=== PATIENT | male | born 1985 | race Caucasian/White ===

== ENCOUNTER 2018-02-26 16:49 | Emergency (ER) | payer SELFPAY ==
[~2018-02-26] VITALS: Ht 175.3 cm; Wt 102.1 kg
[2018-02-26] MEDS ORDERED: predniSONE 20 MG TABLET PO ONE ×2 (17:15→18:00)
[2018-02-26] MEDS ORDERED: LORAZEPAM 0.5 MG TABLET PO ONE (17:15)
[2018-02-26] MEDS ORDERED: ALBUTEROL SULFATE 2.5 MG/3 ML NEBU NEB ONE (17:15)
[2018-02-26] MEDS ORDERED: ALBUTEROL SULFATE 2.5 MG/3 ML NEBU ONE (17:16)
--- NOTE | 2018-02-26 17:19 | NUR ---
PT IS IN ROOM #1B. DR BAH EVALUATED THE PT. [place] [employer] NON-EMERGENCY LINE WAS CALLED TO REPORT ACCIDENT. TELKED TO DISPATCHER #[id number].
[2018-02-26] MEDS ORDERED: LORAZEPAM 1 MG TABLET ONE (17:25)
[2018-02-26] MEDS ORDERED: predniSONE 20 MG TABLET ONE (17:25)
[2018-02-26] MEDS ORDERED: NEOMY/BACITRA/POLYMYXIN B OINT UD PACKET TP ONE ×2 (17:45)
[2018-02-26] MEDS ORDERED: IBUPROFEN 600 MG TABLET PO ONE (18:00)
[2018-02-26] MEDS ORDERED: IBUPROFEN 600 MG TABLET ONE (18:30)
--- NOTE | 2018-02-26 18:47 | NUR ---
PT WAS D/C TO HOME. D/C INSTRUCTIONS GIVEN TO THE PT.
[2018-02-26 18:48] VITALS: BP 134/75
== END 2018-02-26 19:01 | disposition home or self-care (01) ==
LOC: ER 16:50
DX: S50.812A Abrasion of left forearm, initial encounter (principal); S50.811A Abrasion of right forearm, initial encounter; S50.12XA Contusion of left forearm, initial encounter; S50.11XA Contusion of right forearm, initial encounter; F41.9 Anxiety disorder, unspecified; J45.909 Unspecified asthma, uncomplicated; F17.200 Nicotine dependence, unspecified, uncomplicated; W22.8XXA Striking against or struck by other objects, initial encounter; Y93.89 Activity, other specified; Y92.89 Other specified places as the place of occurrence of the external cause; Y99.8 Other external cause status
CPT/HCPCS: 71045; 73090; 73130; 93005; A4663; J7512